=== PATIENT | female | born 1990 | race Hispanic/Latino ===

== ENCOUNTER 2017-12-11 19:42 | Emergency (ER) | payer OTHER ==
[2017-12-11 19:51] VITALS: BP 121/78; PULSE 81; RESP 18; TEMP 98.1; O2SAT 100
[2017-12-11] MEDS ORDERED: Oxycodone/Acetaminophen 5/325 mg Tab PO STA (20:27)
--- NOTE | 2017-12-11 20:34 | ED PDOC ---
Lower Extremity Pain/Injury Time Seen by Provider: 12/11/17 19:52 Chief Complaint (Nursing): Lower Extremity Problem/Injury Chief Complaint (Provider): Right foot pain History Per: Patient History/Exam Limitations: no limitations Onset/Duration Of Symptoms: Mins Current Symptoms Are (Timing): Still Present Additional Complaint(s): 27 year old female presents to the emergency department with a complaint of a right foot pain status post injury earlier today while stepping off the curb. Patient states she was wearing wedged shoes and initially developed bruising to the foot that has resolved since. Denies fever or chills. Past Medical History Reviewed: Historical Data, Nursing Documentation, Vital Signs Vital Signs: Last Vital Signs Temp 98.1 F 12/11/17 19:48 Pulse 81 12/11/17 19:48 Resp 18 12/11/17 19:48 BP 121/78 12/11/17 19:48 Pulse Ox 100 12/11/17 19:48 - Medical History PMH: No Chronic Diseases - Surgical History Other surgeries: other - Family History Family History: States: Unknown Family Hx - Social History Current smoker - smoking cessation education provided: No Alcohol: None Drugs: Denies - Home Medications Home Medications: Ambulatory Orders Medication Instructions Recorded oxyCODONE/Acetaminophen [Percocet 1 ea PO Q8 PRN #10 tab 12/11/17 5/325 mg Tab] - Allergies Allergies/Adverse Reactions: Allergies Allergy/AdvReac Type Severity Reaction Status Date / Time No Known Allergies Allergy Verified 12/11/17 19:48 Review of Systems ROS Statement: Except As Marked, All Systems Reviewed And Found Negative (As per HPI, otherwise negative) Constitutional: Negative for: Fever, Chills Musculoskeletal: Positive for: Foot Pain (Right ) Physical Exam - Reviewed Nursing Documentation Reviewed: Yes Vital Signs Reviewed: Yes - Physical Exam Appears: Positive for: Well, Non-toxic, No Acute Distress Skin: Positive for: Normal Color, Warm, Dry Extremity: Positive for: Tenderness (Lateral dorsal aspect of the right foot with tenderness and swelling. DP pulses 2+ b/l. ). Negative for: Other (No breaking skin integrity. No ankle tenderness. ) Neurologic/Psych: Positive for: Alert, Oriented (x3) - ECG O2 Sat by Pulse Oximetry: 100 (RA) Pulse Ox Interpretation: Normal - Radiology X-Ray: Interpreted by Me (R foot x-ray) X-Ray Interpretation: Other (proximal 5th MTP with comminuted non-displaced fx) Medical Decision Making Medical Decision Making: Time: 1954 Initial impression: Right foot injury Initial plan: Tylenol 650 mg PO Right foot x-ray Reevaluation Time: 2026 Urine Preg Percocet 5/325 mg 1 tab PO 2139 Pt. evaluated by Kirsten, podiatry resident, who spoke with Dr. Russ and recommended f/u in his office in 1 week. Leg was immobilized in orthoglass posterior leg splint applied by Kirsten. Pt. searched on [place] [employer] and indicate now narcotic Rx in the past 2 years. Time: 2141 Patient is medically clear for discharge and give Rx for Percocet 5/325 mg. Advised to follow up with Dr. Reji Russ MD. Clinical Impression: Foot Fracture Scribe Attestation: Documented by Chrissie Zapien, acting as a scribe for Chaim Lugo PA-C. Provider Scribe Attestation: All medical record entries made by the Scribe were at my direction and personally dictated by me. I have reviewed the chart and agree that the record accurately reflects my personal performance of the history, physical exam, medical decision making, and the department course for this patient. I have also personally directed, reviewed, and agree with the discharge instructions and disposition. Disposition - Clinical Impression Clinical Impression: Foot fracture - Patient ED Disposition Is Patient to be Admitted: No Counseled Patient/Family Regarding: Studies Performed, Diagnosis, Need For Followup, Rx Given - Disposition Referrals: Reji Russ, DPM [[facility]] - Disposition: Routine/Home Disposition Time: 21:42 Condition: STABLE Additional Instructions: FOLLOW UP WITH DR. RUSS IN 1 WEEK SCHEDULED. RETURN TO ED IMMEDIATELY IF SYMPTOMS WORSEN. Prescriptions: oxyCODONE/Acetaminophen [Percocet 5/325 mg Tab] 1 ea PO Q8 PRN #10 tab PRN Reason: Pain Instructions: How to Use Crutches, Foot Fracture (DC) Forms: [facility] (Bahamian) Print Language: LAO
--- NOTE | 2017-12-11 21:02 | CP.PCM.CON ---
History of Present Illness - History of Present Illness History of Present Illness: Podiatry - Dr. Stewart 27 year old female seen and evaluated in ED with right foot pain. Friend present at bedside. Patient states approximately 1 hour before presentation, she was walking in wedged shoes and slipped and fell off a curb. States she has not been able to bear weight onto her right foot since the injury. Patient admits that immediately after injury, her toes became bruised however this has since resolved. Of note, patient states she has been taking PO steroids for recent sun poisoning. Offers no other complaints. PMHx: acid reflux PSH: myringotomy FH: non-contributory SH: occasional ETOH, denies smoking/illicit drug use All: NKDA Review of Systems - Review of Systems All systems: reviewed and no additional remarkable complaints except (as per HPI ) Review of Systems: ROS negative other than noted in HPI - Constitutional Constitutional: absent: Chills, Fever Past Patient History - Past Social History Alcohol: None Drugs: Denies - PSYCHIATRIC Hx Substance Use: No Meds Allergies/Adverse Reactions: Allergies Allergy/AdvReac Type Severity Reaction Status Date / Time No Known Allergies Allergy Verified 12/11/17 19:48 Physical Exam - Constitutional Appears: Well, Non-toxic, No Acute Distress - Extremities Exam Additional comments: RLE focused physical exam: VASC: DP and PT pulses palpable 2/4. Temperature gradient cool to cool. Nonpitting edema noted to lateral foot surrounding styloid process. NEURO: Gross sensation and motor function intact. DERM: No open lesions noted. Ecchymosis surrounding styloid process. Skin well hydrated ORTHO: Pain on palpation noted to styloid process. No pain on palpation noted to medial/lateral malleoli, lateral collateral ligaments, deltoid ligaments, achilles tendon, peroneal tendons. No pain upon tib-fib compression or upon calcaneal squeeze. Digital ROM present. Negative piano morillo test. No pain upon ROM 5th digit. MMT deferred secondary to guarding. - Neurological Exam Neurological exam: Alert, Oriented x3 - Psychiatric Exam Psychiatric exam: Normal Affect, Normal Mood Results - Vital Signs Recent Vital Signs: Last Vital Signs Temp 98.1 F 12/11/17 19:48 Pulse 81 12/11/17 19:48 Resp 18 12/11/17 19:48 BP 121/78 12/11/17 19:48 Pulse Ox 100 12/11/17 20:37 Assessment & Plan - Assessment and Plan (Free Text) Assessment: 27F with 5th metatarsal base fracture, non-displaced Plan: Patient seen and evaluated Discussed with attending, Dr. Stewart Right foot XR reviewed: Comminuted, nondisplaced 5th metatarsal base fracture Posterior splint applied to RLE. Patient to remain NWB RLE with the assistance of crutches -Advised to keep dressing clean/dry/intact until follow up visit Recommend RICE therapy Pain control per ED Advised patient to follow up with Dr. Stewart in office within 1 week of discharge Advised patient to return to ED if issue worsens Thank you for the consult
--- NOTE | 2017-12-12 09:46 | RAD ---
PROCEDURE: Right Foot Radiographs. HISTORY: trauma COMPARISON: None. FINDINGS: BONES: Comminuted fracture - 5th metatarsal base -intraarticular extension. No displacement. JOINTS: Normal. SOFT TISSUES: Normal. 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 No displacement. Comments: Findings called in to the emergency room and conveyed to Dr. Snider on 12/12/2017 at 9:44 a.m.
== END 2017-12-11 22:22 | disposition home or self-care (01) ==
LOC: H.ER 19:42
DX: S92.301A Fracture of unspecified metatarsal bone(s), right foot, initial encounter for closed fracture (principal); W01.0XXA Fall on same level from slipping, tripping and stumbling without subsequent striking against object, initial encounter; Y92.89 Other specified places as the place of occurrence of the external cause